=== PATIENT | male | born 1990 | race Caucasian/White ===

== ENCOUNTER 2017-03-27 03:23 | Emergency (ER) | payer SELFPAY ==
[2017-03-27 04:12] VITALS: BP 131/68
== END 2017-03-27 04:12 | disposition other institution (70) ==
LOC: ED 03:23
DX: S40.212A Abrasion of left shoulder, initial encounter (principal); S80.812A Abrasion, left lower leg, initial encounter; S80.811A Abrasion, right lower leg, initial encounter; J45.909 Unspecified asthma, uncomplicated; V49.9XXA Car occupant (driver) (passenger) injured in unspecified traffic accident, initial encounter; Y93.89 Activity, other specified; Y92.89 Other specified places as the place of occurrence of the external cause; Y99.8 Other external cause status

== ENCOUNTER 2017-03-27 03:23 | Emergency (ER) | payer OTHER | END 2017-03-27 04:12 | disposition other institution (70) | LOC: ED 03:23 | DX: Z02.89 Encounter for other administrative examinations (principal) ==